=== PATIENT | female | born 1975 | race Two or more races ===

== ENCOUNTER → 2024-04-15 | Outpatient (CLI) | payer MEDICAID, SELFPAY ==
--- NOTE | 2024-04-15 16:00 | XR_ITS ---
Examination: Breast ultrasound complete, bilateral Date and time of exam: April 15, 2024 1600 hours INDICATIONS: Left breast pain beginning 6 months ago Technique: Real-time grayscale ultrasonographic imaging bilateral breasts, including all 4 quadrants as well as nipple retroareolar and axillary regions. Findings: No cystic or solid mass involving either breast Bilateral dilated retroareolar ducts IMPRESSION: BI-RADS Category 2: Benign findings
== END | disposition home or self-care (01) ==
PROVIDERS: Referring Provider Nurse Practitioner Family; Visit Provider Nurse Practitioner Family
DX: N64.4 Mastodynia (principal)
CPT/HCPCS: 76641

== ENCOUNTER → 2025-02-12 | Outpatient (CLI) | payer MEDICAID, SELFPAY ==
--- NOTE | 2025-02-12 14:15 | XR_ITS ---
Examination: Breast ultrasound, unilateral, left complete Date and time of exam: February 12 2025, 1402 hours INDICATIONS: Left breast pain and bloody discharge from the nipple 2 years Technique: Real-time cabrales scale ultrasonographic imaging performed left breast including all 4 quadrants as well as nipple retroareolar and axillary region. Findings: 10:00 cyst 2 x 2 mm IMPRESSION: BI-RADS Category 0: Incomplete: Need additional imaging evaluation Given the patient's history of bloody nipple discharge, recommend left ductogram follow-up
--- NOTE | 2025-02-12 14:45 | XR_ITS ---
Examination: Diagnostic digital mammography, bilateral Computer aided detection 3-D breast Tomosynthesis, bilateral Date and time of exam: February 12, 2025, 1421 hours, compared to December 14, 2023 INDICATIONS: Intermittent left breast bloody discharge 2 years Technique: Nonmagnified MLO, CC views of the breasts to been obtained, reconstructed from 3-D Tomosynthesis images. R2 computer aided detection program utilized for evaluation of suspicious masses and/or abnormal calcifications. 3-D Tomosynthesis images obtained. Findings: The breasts are heterogeneously dense, which may obscure small masses 6 mm focal asymmetry is noticed 6:00 position left breast Impression: BI-RADS Category 0: Incomplete: Need additional imaging evaluation Recommend left breast ductogram follow-up given the patient's presentation Recommend follow-up spot tomographic views 6 mm focal asymmetry 6:00 position left breast.
== END | disposition home or self-care (01) ==
PROVIDERS: PCP Nurse Practitioner Family; Referring Provider Nurse Practitioner Family; Visit Provider Nurse Practitioner Family
DX: N64.52 Nipple discharge (principal); N64.89 Other specified disorders of breast; R92.8 Other abnormal and inconclusive findings on diagnostic imaging of breast
CPT/HCPCS: 76641; 77062; 77066; G0279